=== PATIENT | male | born 1940 | race Caucasian/White ===

== ENCOUNTER 2018-06-24 10:36 | Emergency (ER) | payer MEDICARE, OTHER ==
[~2018-06-24] VITALS: Ht 188 cm; Wt 93.4 kg
--- OUTSIDE RECORDS SUMMARY | 2018-06-24 10:44 | XMS REPORT | Clinical Summary ---
Author Author Admin, [facility] Organization [facility] Address Unknown Phone Unavailable Allergies, Adverse Reactions, Alerts Allergy Name Reaction Description Start Date Severity Status Provider No Known Allergies Yadira Elder Conditions or Problems Problem Name Problem Code Onset Date Status Entry Date Provider Comment Standard Description Annotate Inguinal hernia, left 550.90 Active Tracy Lara MD Unilateral or unspecified inguinal hernia, without mention of obstruction or gangrene (not specified as recurrent) Testicular Pain Active Tracy Lara MD Abnormal urine finding 791.9 Active Chani Delacruz Other nonspecific findings on examination of urine Medication List Medication Instructions Start Date Stop Date Generic Name NDC Status Provider Patient Instruction CALCIUM 500 MG ORAL TABLET 1 tab by mouth daily CALCIUM 79543669285 Active Yadira Elder Active MULTIVITAMINS ORAL CAPSULE 1 cap by mouth daily MULTIPLE VITAMIN 85475474140 Active Yadira Elder Active ASPIRIN 81 MG ORAL TABLET DELAYED RELEASE 1 po qd ASPIRIN 91153601603 Active Yadira Elder Active PROMETHAZINE HCL 25 MG ORAL TABLET 1 four times a day as needed for nausea/ vomiting PROMETHAZINE HCL 17883141568 Active Yadira Elder Active POLYETHYLENE GLYCOL 1450 POWDER 17 gram daily prn constipation POLYETHYLENE GLYCOL 1450 74767935272 Active Yadira Elder Active Advance Directives Directive Description Start Date PERMISSION TO SHARE Vital Signs Date Name Value Unit Range Description blood pressure, diastolic 76 mm[Hg] BP kruger blood pressure, systolic 120 mm[Hg] BP sys height E&M 74 [in_us] Bdy height pulse rate E&M 77 /min Heart rate temperature E&M 98.2 [degF] Body temperature weight E&M 227 [lb_av] Weight Measured Diagnostic Results Date Name Value Unit Range Description Chart Maintenance: Outside labs entered on Flowsheet - Chemistry prostate specific antigen 1.1 ng/mL Office Visit: Difficulty with urination - Chemistry protein, total urine random negative mg/dL RBC, urine, dipstick negative Office Visit: Difficulty with urination - Urinalysis ketones, urine, by test strip negative bilirubin, urine negative glucose, urine, semiquantitative negative pH, urine, semiquantitative 5 specific gravity, urine 1.020 urine color yellow appearance, urine clear leukocyte esterase, urine, by dipstick negative nitrite, urine, semiquantitative negative urobilinogen, urine, semiquantitative (dipstick) negative protein, urine, semiquantitative (dipstick) negative Encounters Code Encounter Date Provider Facility [id number] Level 3 New 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
--- OUTSIDE RECORDS SUMMARY | 2018-06-24 10:44 | XMS REPORT | Clinical Summary ---
Author Author Admin, [facility] Organization [facility] Address Unknown Phone Unavailable Allergies, [...] TABLET 1 tab by mouth daily CALCIUM 74055552236 Active Yadira Elder Active MULTIVITAMINS ORAL CAPSULE 1 cap by mouth daily MULTIPLE VITAMIN 45468065746 Active Yadira Elder Active ASPIRIN 81 MG ORAL TABLET DELAYED RELEASE 1 po qd ASPIRIN 45099806624 Active Yadira Elder Active PROMETHAZINE HCL 25 MG ORAL TABLET 1 four times a day as needed for nausea/ vomiting PROMETHAZINE HCL 60455158611 Active Yadira Elder Active POLYETHYLENE GLYCOL 1450 POWDER 17 gram daily prn constipation POLYETHYLENE GLYCOL 1450 02418215290 Active Yadira Elder Active Advance Directives Directive [...] Results Date Name Value Unit Range Description Office Visit: Difficulty with urination - Chemistry RBC, urine, dipstick negative protein, total urine random negative mg/dL Office Visit: Difficulty with urination - Urinalysis ketones, urine, by test strip negative bilirubin, urine negative glucose, urine, semiquantitative negative pH, urine, semiquantitative 5 specific gravity, urine 1.020 urine color yellow appearance, urine clear leukocyte esterase, urine, by dipstick negative nitrite, urine, semiquantitative negative urobilinogen, urine, semiquantitative (dipstick) negative protein, urine, semiquantitative (dipstick) negative Encounters Code Encounter Date Provider Facility [id number] Level 3 New Patient 13:34:36 MONISHA Lara MD [facility]
--- OUTSIDE RECORDS SUMMARY | 2018-06-24 10:44 | XMS REPORT | Clinical Summary ---
Author Author Admin, [facility] Organization [facility] Address Unknown Phone [...] TABLET 1 tab by mouth daily CALCIUM 55502804532 Active Yadira Elder Active MULTIVITAMINS ORAL CAPSULE 1 cap by mouth daily MULTIPLE VITAMIN 20691677486 Active Yadira Elder Active ASPIRIN 81 MG ORAL TABLET DELAYED RELEASE 1 po qd ASPIRIN 64890623251 Active Yadira Elder Active PROMETHAZINE HCL 25 MG ORAL TABLET 1 four times a day as needed for nausea/ vomiting PROMETHAZINE HCL 20630319850 Active Yadira Elder Active POLYETHYLENE GLYCOL 1450 POWDER 17 gram daily prn constipation POLYETHYLENE GLYCOL 1450 06788396165 Active Yadira Elder Active Advance Directives Directive [...] negative Encounters Code Encounter Date Provider Facility CPT-[id number] Level 3 New Patient 13:34:36 MONISHA Lara MD [facility]
--- OUTSIDE RECORDS SUMMARY | 2018-06-24 10:44 | XMS REPORT | Clinical Summary ---
Author Author Admin, [facility] Organization [facility] Address Unknown Phone Unavailable Allergies, Adverse Reactions, [...] TABLET 1 tab by mouth daily CALCIUM 69086715557 Active Yadira Elder Active MULTIVITAMINS ORAL CAPSULE 1 cap by mouth daily MULTIPLE VITAMIN 76035975917 Active Yadira Elder Active ASPIRIN 81 MG ORAL TABLET DELAYED RELEASE 1 po qd ASPIRIN 04233514401 Active Yadira Elder Active PROMETHAZINE HCL 25 MG ORAL TABLET 1 four times a day as needed for nausea/ vomiting PROMETHAZINE HCL 77859449584 Active Yadira Elder Active POLYETHYLENE GLYCOL 1450 POWDER 17 gram daily prn constipation POLYETHYLENE GLYCOL 1450 16543360927 Active Yadira Elder Active Encounters Code Encounter Date Provider Facility CPT-46456 Level 3 New Patient 13:34: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
--- OUTSIDE RECORDS SUMMARY | 2018-06-24 10:44 | XMS REPORT | Clinical Summary ---
Author Author Admin, [facility] Organization [facility] Address Unknown Phone Unavailable Allergies, Adverse Reactions, Alerts Allergy Name Reaction Description Start Date Severity Status Provider No Known Allergies Yadira Elder Conditions or Problems Problem Name Problem Code Onset Date Status Entry Date Provider Comment Standard Description Annotate Problems Unknown Active Medication List Medication Instructions Start Date Stop Date Generic Name NDC Status Provider Patient Instruction CALCIUM 500 MG ORAL TABLET 1 tab by mouth daily CALCIUM 46748948288 Active Yadira Elder Active MULTIVITAMINS ORAL CAPSULE 1 cap by mouth daily MULTIPLE VITAMIN 51131445714 Active Yadira Elder Active ASPIRIN 81 MG ORAL TABLET DELAYED RELEASE 1 po qd ASPIRIN 01590521359 Active Yadira Elder Active PROMETHAZINE HCL 25 MG ORAL TABLET 1 four times a day as needed for nausea/ vomiting PROMETHAZINE HCL 47870140308 Active Yadira Elder Active POLYETHYLENE GLYCOL 1450 POWDER 17 gram daily prn constipation POLYETHYLENE GLYCOL 1450 95200294304 Active Yadira Elder Active
--- OUTSIDE RECORDS SUMMARY | 2018-06-24 10:44 | XMS REPORT | Clinical Summary ---
Author Author Admin, E Organization [facility] Address Unknown Phone Unavailable Allergies, Adverse Reactions, [...] TABLET 1 tab by mouth daily CALCIUM 78631402192 Active Yadira Elder Active MULTIVITAMINS ORAL CAPSULE 1 cap by mouth daily MULTIPLE VITAMIN 76020943911 Active Yadira Elder Active ASPIRIN 81 MG ORAL TABLET DELAYED RELEASE 1 po qd ASPIRIN 65481345406 Active Yadira Elder Active PROMETHAZINE HCL 25 MG ORAL TABLET 1 four times a day as needed for nausea/ vomiting PROMETHAZINE HCL 75186192907 Active Yadira Elder Active POLYETHYLENE GLYCOL 1450 POWDER 17 gram daily prn constipation POLYETHYLENE GLYCOL 1450 32952470686 Active Yadira Elder Active Advance Directives Directive [...] negative Encounters Code Encounter Date Provider Facility CPT-[id number] Level 3 New Patient 13:34:36 MONISHA Lara MD [facility]
--- OUTSIDE RECORDS SUMMARY | 2018-06-24 10:44 | XMS REPORT | Clinical Summary ---
Author Author Admin, [facility] Organization [facility] Address Unknown Phone Unavailable Allergies, [...] TABLET 1 tab by mouth daily CALCIUM 36549778010 Active Yadira Elder Active MULTIVITAMINS ORAL CAPSULE 1 cap by mouth daily MULTIPLE VITAMIN 42542654069 Active Yadira Elder Active ASPIRIN 81 MG ORAL TABLET DELAYED RELEASE 1 po qd ASPIRIN 25292242337 Active Yadira Elder Active PROMETHAZINE HCL 25 MG ORAL TABLET 1 four times a day as needed for nausea/ vomiting PROMETHAZINE HCL 85520389603 Active Yadira Elder Active POLYETHYLENE GLYCOL 1450 POWDER 17 gram daily prn constipation POLYETHYLENE GLYCOL 1450 64794590287 Active Yadira Elder Active Advance Directives Directive [...] negative Encounters Code Encounter Date Provider Facility CPT-12998 Level 3 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
--- OUTSIDE RECORDS SUMMARY | 2018-06-24 10:44 | XMS REPORT | Clinical Summary ---
Author Author Admin, [facility] Organization [facility] Address Unknown Phone Unavailable Allergies, [...] TABLET 1 tab by mouth daily CALCIUM 57624771775 Active Yadira Elder Active MULTIVITAMINS ORAL CAPSULE 1 cap by mouth daily MULTIPLE VITAMIN 36137597559 Active Yadira Elder Active ASPIRIN 81 MG ORAL TABLET DELAYED RELEASE 1 po qd ASPIRIN 00431381628 Active Yadira Elder Active PROMETHAZINE HCL 25 MG ORAL TABLET 1 four times a day as needed for nausea/ vomiting PROMETHAZINE HCL 86350711599 Active Yadira Elder Active POLYETHYLENE GLYCOL 1450 POWDER 17 gram daily prn constipation POLYETHYLENE GLYCOL 1450 56505749699 Active Yadira Elder Active Advance Directives Directive Description Start Date PERMISSION TO SHARE Encounters Code Encounter Date Provider Facility CPT-24013 Level 3 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
--- OUTSIDE RECORDS SUMMARY | 2018-06-24 10:45 | XMS REPORT | Clinical Summary ---
Author Author Admin, [facility] Organization [facility] Address Unknown Phone Unavailable Allergies, Adverse Reactions, [...] TABLET 1 tab by mouth daily CALCIUM 09954360192 Active Yadira Elder Active MULTIVITAMINS ORAL CAPSULE 1 cap by mouth daily MULTIPLE VITAMIN 92060948037 Active Yadira Elder Active ASPIRIN 81 MG ORAL TABLET DELAYED RELEASE 1 po qd ASPIRIN 68943147638 Active Yadira Elder Active PROMETHAZINE HCL 25 MG ORAL TABLET 1 four times a day as needed for nausea/ vomiting PROMETHAZINE HCL 57583321978 Active Yadira Elder Active POLYETHYLENE GLYCOL 1450 POWDER 17 gram daily prn constipation POLYETHYLENE GLYCOL 1450 11577542733 Active Yadira Elder Active Encounters Code Encounter Date Provider Facility CPT-03807 Level 3 New Patient 13:34:36 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
--- OUTSIDE RECORDS SUMMARY | 2018-06-24 10:45 | XMS REPORT | Continuity of Care Document ---
Author Author [facility] Address Unknown Phone Unavailable Allergies There is no data. Medications There is no data. Problems Date Dx Coded Attending Type Code Diagnosis Diagnosed By 04/28/2017 Tracy Lara MD K40.90 Inguinal hernia, left 04/28/2017 Tracy Lara MD N50.8 Testicular Pain 04/28/2017 Tracy Lara MD R82.99 Abnormal urine finding Procedures There is no data. Results There is no data. Encounters ACCT No. Visit Date/Time Discharge Status Pt. Type Provider Facility Loc./Unit Complaint [id number] 05/12/2018 19:44:01 [facility] Unknown Tracy Lara MD
[2018-06-24] MEDS ORDERED: NS IV 500 ML 500 ML IV ONE (10:48)
--- NOTE | 2018-06-24 11:33 | Diagnostic Imaging Report ---
INDICATION: Slurred speech, found down. FINDINGS: No aspiration or pneumonia. Air trapping and COPD noted. There is a right IJ catheter in the SVC. Heart size is felt to be within normal limits. No overt vascular congestion. IMPRESSION: No acute appearing abnormality. Dictated by: Dictated on workstation # [id number]
[2018-06-24 11:36] LABS: FIBRIN DEGRADATION PRODUCTS 0.96 UG/ML (0.00-0.49); INR 1.1 (0.8-1.4); PROTHROMBIN TIME PATIENT 13.9 SEC (12.2-14.7)
[2018-06-24 11:37] LABS: CARBON DIOXIDE 24 MMOL/L (21-32); CHLORIDE 98 MMOL/L (98-107); SODIUM 136 MMOL/L (135-145)
[2018-06-24 11:38] LABS: ALANINE AMINOTRANSFERASE 20 U/L (0-55); ALBUMIN 4.2 GM/DL (3.2-4.5); ALKALINE PHOSPHATASE 72 U/L (40-136); BILIRUBIN,TOTAL 0.7 MG/DL (0.1-1.0); BUN/CREATININE RATIO 26; CALCIUM 9.1 MG/DL (8.5-10.1); CREATININE SERUM 1.13 MG/DL (0.60-1.30); GFR ESTIMATED > 60; GLUCOSE 200 MG/DL (70-105); TOTAL PROTEIN 6.7 GM/DL (6.4-8.2)
[2018-06-24 11:41] LABS: BASOPHILS % (AUTO) 0 % (0-10); EOSINOPHILS % (AUTO) 0 % (0-10); HEMATOCRIT 42 % (40-54); HEMOGLOBIN 14.5 G/DL (13.3-17.7); LYMPHOCYTES % (AUTO) 4 % (12-44); MEAN CORPUSCULAR HEMOGLOBIN 33 PG (25-34); MEAN CORPUSCULAR HGB CONC 34 G/DL (32-36); MEAN CORPUSCULAR VOLUME 95 FL (80-99); MEAN PLATELET VOLUME 10.1 FL (7.4-10.4); MONOCYTES % (AUTO) 6 % (0-12); PLATELET COUNT 175 10^3/uL (130-400); RED CELL DISTRIBUTION WIDTH 14.2 % (10.0-14.5); WHITE BLOOD COUNT 15.8 10^3/uL (4.3-11.0)
[2018-06-24 11:42] LABS: LYMPHOCYTES # (AUTO) 0.7 X 10^3 (1.0-4.0); MONOCYTES # (AUTO) 0.9 X 10^3 (0.0-1.0); NEUTROPHILS # (AUTO) 14.1 X 10^3 (1.8-7.8); NEUTROPHILS % (AUTO) 90 % (42-75)
--- NOTE | 2018-06-24 11:42 | Diagnostic Imaging Report ---
PROCEDURE: CT head and CT cervical spine without contrast. TECHNIQUE: Multiple contiguous axial images were obtained through the brain and cervical spine without the use of intravenous contrast. Sagittal and coronal reformations through the cervical spine were then performed. Auto Exposure Controls were utilized during the CT exam to meet ALARA standards for radiation dose reduction. INDICATION: Strokelike symptoms and found down. Patient has slurred speech. COMPARISON: No prior studies are available for comparison. FINDINGS: CT HEAD: There is a rounded masslike density identified in the right frontotemporal lobe measuring approximately 3.7 cm AP diameter. Moderate amount of surrounding low density is consistent with edema. Ventricular size is normal. There is no midline shift. No acute intra-axial or extra-axial hemorrhage is seen although the lesion does have some slight hyperdensity to it. Cisterns are patent. Visualized paranasal sinuses are clear. IMPRESSION: 1. 3.7 cm mass right frontotemporal lobe with surrounding vasogenic edema. This is concerning for a neoplastic process, either primary or metastatic. MRI would be useful for further evaluation. CT CERVICAL SPINE: Multilevel degenerative disc disease is seen within disc space narrowing and marginal spurring. No fracture is seen. Prevertebral tissues are within normal limits. Odontoid is intact. IMPRESSION: Cervical spondylosis. No acute bony abnormality is detected. Results were discussed with Dr. Phillips of the emergency department prior to this dictation. Dictated by: Dictated on workstation # [id number]
[2018-06-24] MEDS ORDERED: DEXAMETHASONE 10 MG/ML (DECADRON) 1 ML VIAL IV ONE (11:45)
--- NOTE | 2018-06-24 11:45 | ED Neurological Problem ---
General Chief Complaint: Altered Mental Status Stated Complaint: SLURRED SPEECH; FATIGUE; BP 130/70 Nursing Triage Note: Patient's states she found patient on the floor in the bathroom, states patient had been incontinent of bowel and bladder, slurred speech, and lethargic mentation. Nursing Sepsis Screen: No Definite Risk Source: patient Exam Limitations: no limitations History of Present Illness Date Seen by Provider: Jun 24, 2018 Time Seen by Provider: 10:40 Initial Comments Here with family who brought him to the emergency department via POV. He apparently was found in the bathroom on the floor with loss of bowel and bladder. He was confused. Last and well time was last night before he went to bed. Confusion continues now and appears to be globally weak. No report of vomiting. Does have contusion to the right side of the face on the cheek and forehead. Patient does not remember anything of what happened. He is able to follow simple commands and answer simple questions. Does have history of lymphoma that is reported to be in remission. Last chemotherapy was in March. Follows with oncology and cardiology at [facility] in [facility]. Timing/Duration: unknown, increasing Severity: moderate, severe Associated Symptoms: confusion, slurred speech, weakness Allergies and Home Medications Allergies Coded Allergies: No Known Drug Allergies (Unverified , 06/24/18) Patient Home Medication List Home Medication List Reviewed: Yes Review of Systems Review of Systems Constitutional: No chills, No fever; weakness Eyes: No Symptoms Reported Ears, Nose, Mouth, Throat: mouth pain (Tongue); denies loose teeth Respiratory: No cough, No short of breath Cardiovascular: No chest pain; syncope Gastrointestinal: No abdominal pain, No nausea, No vomiting Genitourinary: no symptoms reported Musculoskeletal: no symptoms reported Skin: see HPI, change in color, lesions Psychiatric/Neurological: See HPI, Cognitive Dysfunction, Weakness All Other Systems Reviewed Negative Unless Noted: Yes Past Vycyfnm-Wzcrhs-Syqsdq Hx Past Med/Social Hx: Reviewed Nursing Past Med/Soc Hx Patient Social History Alcohol Use: Denies Use Recreational Drug Use: No Smoking Status: Never a Smoker 2nd Hand Smoke Exposure: No Recent Foreign Travel: No Contact w/Someone Who Travel: No Recent Infectious Disease Expo: No Physical Abuse: No Sexual Abuse: No Mistreated: No Past Medical History Surgeries: Yes Bladder Surgery, Tonsillectomy, Transurethral Resection Respiratory: Yes Pulmonary Embolism, COPD Cardiac: Yes Neurological: No Genitourinary: No Gastrointestinal: Yes Gastroesophageal Reflux Cancer: Yes Lymphoma What Type of Treatment Did You: Chemotherapy, Radiation Psychosocial: No Blood Disorders: Yes (blood clotting disorder) Family Medical History Reviewed and Corrections made No Pertinent Family Hx Physical Exam Vital Signs Vital Signs - First Documented 06/24/18 10:41 Temp 98.1 Pulse 86 Resp 20 B/P (MAP) 128/61 (83) Pulse Ox 95 O2 Delivery Room Air Capillary Refill : Less Than 3 Seconds Height, Weight, BMI Height: 6'2.00" Weight: 206lbs. oz. 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 Does note date and birthday. Does know place and self but is somewhat confused on time) Crainal Nerves: PERRL, abnormal speech (slurred or thick tongued); No facial asymmetry, No facial weakness, No tongue deviation to R, No tongue deviation to L Coordination/Gait: abnormal gait (globally weak) Motor/Sensory: no sensory deficit, weak motor strength RUE, weak motor strength LUE, weak motor strength RLE, weak motor strength LLE Skin: normal color, warm/dry Focused Exam Lactate Level 06/24/18 10:45: Lactic Acid Level 2.27*H 06/24/18 12:45: Lactic Acid Level 2.29*H Lactic Acid Level Laboratory Tests Test 06/24/18 10:45 06/24/18 12:45 Lactic Acid Level 2.27 MMOL/L (0.50-2.00) *H 2.29 MMOL/L (0.50-2.00) *H Progress/Results/Core Measures Results/Orders Lab Results Laboratory Tests Test 06/24/18 10:45 06/24/18 10:48 06/24/18 12:00 06/24/18 12:45 Range/Units White Blood Count 15.8 H 4.3-11.0 10^3/uL Red Blood Count 4.45 4.35-5.85 10^6/uL Hemoglobin 14.5 13.3-17.7 G/DL Hematocrit 42 40-54 % Mean Corpuscular Volume 95 80-99 FL Mean Corpuscular Hemoglobin 33 25-34 PG Mean Corpuscular Hemoglobin Concent 34 32-36 G/DL Red Cell Distribution Width 14.2 10.0-14.5 % Platelet Count 175 130-400 10^3/uL Mean Platelet Volume 10.1 7.4-10.4 FL Neutrophils (%) (Auto) 90 H 42-75 % Lymphocytes (%) (Auto) 4 L 12-44 % Monocytes (%) (Auto) 6 0-12 % Eosinophils (%) (Auto) 0 0-10 % Basophils (%) (Auto) 0 0-10 % Neutrophils # (Auto) 14.1 H 1.8-7.8 X 10^3 Lymphocytes # (Auto) 0.7 L 1.0-4.0 X 10^3 Monocytes # (Auto) 0.9 0.0-1.0 X 10^3 Eosinophils # (Auto) 0.0 0.0-0.3 10^3/uL Basophils # (Auto) 0.0 0.0-0.1 10^3/uL Neutrophils % (Manual) 53 % Lymphocytes % (Manual) 6 % Monocytes % (Manual) 6 % Eosinophils % (Manual) 0 % Basophils % (Manual) 0 % Band Neutrophils 35 % Prothrombin Time 13.9 12.2-14.7 SEC INR Comment 1.1 0.8-1.4 Activated Partial Thromboplast Time 33 24-35 SEC D-Dimer 0.96 H 0.00-0.49 UG/ML Sodium Level 136 135-145 MMOL/L Potassium Level 4.0 3.6-5.0 MMOL/L Chloride Level 98 98-107 MMOL/L Carbon Dioxide Level 24 21-32 MMOL/L Anion Gap 14 5-14 MMOL/L Blood Urea Nitrogen 29 H 7-18 MG/DL Creatinine 1.13 0.60-1.30 MG/DL Estimat Glomerular Filtration Rate > 60 BUN/Creatinine Ratio 26 Glucose Level 200 H 70-105 MG/DL Lactic Acid Level 2.27 *H 2.29 *H 0.50-2.00 MMOL/L Calcium Level 9.1 8.5-10.1 MG/DL Corrected Calcium 8.9 8.5-10.1 MG/DL Total Bilirubin 0.7 0.1-1.0 MG/DL Aspartate Amino Transf (AST/SGOT) 41 H 5-34 U/L Alanine Aminotransferase (ALT/SGPT) 20 0-55 U/L Alkaline Phosphatase 72 40-136 U/L Troponin T 159 *H <=15 NG/L Total Protein 6.7 6.4-8.2 GM/DL Albumin 4.2 3.2-4.5 GM/DL Glucometer 186 H 70-110 MG/DL Urine Color YELLOW Urine Clarity SL CLOUDY Urine pH 5.5 5-9 Urine Specific [place] 1.025 H 1.016-1.022 Urine Protein NEGATIVE NEGATIVE Urine Glucose (UA) NEGATIVE NEGATIVE Urine Ketones TRACE H NEGATIVE Urine Nitrite NEGATIVE NEGATIVE Urine Bilirubin NEGATIVE NEGATIVE Urine Urobilinogen 0.2 NORMAL MG/DL Urine Leukocyte Esterase NEGATIVE NEGATIVE Urine RBC (Auto) TRACE-I NEGATIVE Urine RBC 0-2 /HPF Urine WBC 5-10 H /HPF Urine Squamous Epithelial Cells 0-2 /HPF Urine Crystals NONE /LPF Urine Amorphous Sediment LARGE JIA URATES H /LPF Urine Bacteria FEW H /HPF Urine Casts NONE /LPF Urine Mucus MODERATE H /LPF Urine Culture Indicated NO My Orders Orders - CONNIE ELIZALDE MD Cbc With Automated Diff (06/24/18 10:48) Protime With Inr (06/24/18 10:48) Partial Thromboplastin Time (06/24/18 10:48) Comprehensive Metabolic Panel (06/24/18 10:48) Fibrin Degradation Products (06/24/18 10:48) Chest 1 View Ap/Pa Only (06/24/18 10:48) Ekg Tracing (06/24/18 10:48) Accucheck Stat ONCE (06/24/18 10:48) Saline Lock/Iv-Start (06/24/18 10:48) Vital Signs Stroke Patient Q15M (06/24/18 10:48) O2 (06/24/18 10:48) Intake & Output 06,14,22 (06/24/18 10:48) Monitor-Rhythm Ecg Trace Only (06/24/18 10:48) Dysphagia Screening Tool (06/24/18 10:48) Blood Culture (06/24/18 10:48) Sputum Culture (06/24/18 10:48) Urinalysis (06/24/18 10:48) Urine Culture (06/24/18 10:48) Vital Signs Adult Sepsis Patie Q15M (06/24/18 10:48) Remove Rings In Anticipation O (06/24/18 10:48) Lactic Acid Analyzer (06/24/18 10:48) Ns Iv 500 Ml (Sodium Chloride 0.9%) (06/24/18 10:48) Troponin T (06/24/18 10:59) Ct Head/Cervical Spine Wo (06/24/18 10:43) Manual Differential (06/24/18 10:45) Dexamethasone Injection (Decadron Inject (06/24/18 11:45) Medications Given in ED Current Medications Medications Dose Ordered Sig/Mary Route Start Time Stop Time Status Last Admin Dose Admin Dexamethasone Sodium Phosphate 10 mg ONCE ONCE IV 06/24/18 11:45 06/24/18 11:47 DC 06/24/18 12:24 10 MG Sodium Chloride 500 ml @ 0 mls/hr Q0M ONCE IV 06/24/18 10:48 06/24/18 10:52 DC 06/24/18 10:58 1,000 MLS/HR Vital Signs/I&O 06/24/18 06/24/18 10:41 12:59 Temp 98.1 98.4 Pulse 86 74 Resp 20 14 B/P (MAP) 128/61 (83) 112/56 (74) Pulse Ox 95 95 O2 Delivery Room Air Room Air Blood Pressure Mean: 83 FSBG Bedside Testing Finger Stick Blood Glucose: 186 Blood Glucose Action Taken: notified Dr Elizalde Progress Progress Note : Progress Note Seen and evaluated on arrival. IV established. Stroke and sepsis protocol initiated. Rapid CT of head and neck assessment ordered. EKG and labs ordered. We will get blood cultures and lactic acid. Monitor patient. 1142: Notified by radiology of mass in the brain. Patient will require transfer. Patient's oncologist, lead infrastructure architect and typical carious [facility] in [facility]. We will try to arrange transfer there. Decadron 10 mg IV ordered due to edema effect of mass and brain. Current vital signs heart rate of 80, blood pressure of 133/66 and O2 sat 96% on room air. 1205: I have initiated transfer discussion with a [facility]. I discussed the case with the emergency doctor but will talk with the trauma surgeon. Ultimately patient clearly needs admission in the hospitalist service. 1221: I did discuss the case with Rosalba, nurse practitioner on the hospitalist service. Case reviewed. Patient has been accepted to the service of Dr. Villanueva at [facility]. We will arrange transfer via EMS. A copy of the chart, labs, radiology reports intolerance we'll go with the patient. Initial ECG Impression Date: Jun 24, 2018 Initial ECG Impression Time: 10:41 Initial ECG Rate: 86 Initial ECG Rhythm: Normal Sinus Comment Sinus rhythm with incomplete right bundle branch block. Normal but leftward axis. No evidence of ST elevation OK. No previous available for comparison. Interpreted by me. Diagnostic Imaging Diagonstic Imaging: CT Plain Films/CT/US/NM/MRI: c-spine, head Comments [facility], [place] NAME: PRINCE GEIGER [facility] REC#: [id number] PT STATUS: REG ER : 1940 PHYSICIAN: CONNIE ELIZALDE MD ADMIT DATE: 06/24/18/ER FS Draft Date of Exam:06/24/18 CT HEAD/CERVICAL SPINE WO PROCEDURE: CT head and CT cervical spine without contrast. TECHNIQUE: Multiple contiguous axial images were obtained through the brain and cervical spine without the use of intravenous contrast. Sagittal and coronal reformations through the cervical spine were then performed. Auto Exposure Controls were utilized during the CT exam to meet ALARA standards for radiation dose reduction. INDICATION: Strokelike symptoms and found down. Patient has slurred speech. COMPARISON: No prior studies are available for comparison. FINDINGS: CT HEAD: There is a rounded masslike density identified in the right frontotemporal lobe measuring approximately 3.7 cm AP diameter. Moderate amount of surrounding low density is consistent with edema. Ventricular size is normal. There is no midline shift. No acute intra-axial or extra-axial hemorrhage is seen although the lesion does have some slight hyperdensity to it. Cisterns are patent. Visualized paranasal sinuses are clear. IMPRESSION: 1. 3.7 cm mass right frontotemporal lobe with surrounding vasogenic edema. This is concerning for a neoplastic process, either primary or metastatic. MRI would be useful for further evaluation. CT CERVICAL SPINE: Multilevel degenerative disc disease is seen within disc space narrowing and marginal spurring. No fracture is seen. Prevertebral tissues are within normal limits. Odontoid is intact. IMPRESSION: Cervical spondylosis. No acute bony abnormality is detected. Results were discussed with Dr. Elizalde of the emergency department prior to this dictation. Dictated on workstation # [id number] Dict: 06/24/18 1128 Trans: 06/24/18 1141 TS [id number] Interpreted by: WILLIS HERRON MD Electronically signed by: Diagonstic Imaging: Xray Plain Films/CT/US/NM/MRI: chest Comments [facility] [place] NAME: PRINCE GEIGER [facility] REC#: [id number] PT STATUS: REG ER : 1940 PHYSICIAN: CONNIE ELIZALDE MD ADMIT DATE: 06/24/18/ER FS Draft Date of Exam:06/24/18 CHEST 1 VIEW AP/PA ONLY INDICATION: Slurred speech, found down. FINDINGS: No aspiration or pneumonia. Air trapping and COPD noted. There is a right IJ catheter in the SVC. Heart size is felt to be within normal limits. No overt vascular congestion. IMPRESSION: No acute appearing abnormality. Dictated on workstation # [id number] Dict: 06/24/18 1131 Trans: 06/24/18 113 B [id number] Interpreted by: SHAYY ROQUE Electronically signed by: Departure Impression Primary Impression: Brain mass Additional Impressions: Seizure Facial contusion Qualified Codes: S00.83XA - Contusion of other part of head, initial encounter Elevated troponin Disposition: 02 XFER SHT-TRM HOSP Condition: Stable Transfer Time Spoke to Accepting Phy: 12:21 Transfer Time: 13:00 Transfer Facility: [facility] in [facility], Dr. Villanueva accepting Method of Transfer: EMS Departure-Patient Inst. Referrals: SELF,ESTHELA NARANJO (PCP/Family) Primary Care Physician CONNIE ELIZALDE MD Jun 24, 2018 11:45
[2018-06-24 11:48] LABS: BAND NEUTROPHILS 35 %; BASOPHILS % (MANUAL) 0 %; EOSINOPHILS % (MANUAL) 0 %; LYMPHOCYTES % (MANUAL) 6 %; MONOCYTES % (MANUAL) 6 %; NEUTROPHILS % (MANUAL) 53 %
[2018-06-24 12:22] LABS: CLARITY,URINE SL CLOUDY; COLOR,URINE YELLOW; GLUCOSE, URINE (UA) NEGATIVE (NEGATIVE); KETONES,URINE TRACE (NEGATIVE); NITRITE,URINE NEGATIVE (NEGATIVE); PH,URINE 5.5 (5-9); PROTEIN,URINE NEGATIVE (NEGATIVE)
[2018-06-24 12:23] LABS: BACTERIA,URINE FEW /HPF; BILIRUBIN,URINE NEGATIVE (NEGATIVE); LEUKOCYTE ESTERASE ,URINE NEGATIVE (NEGATIVE); RBC,URINE 0-2 /HPF; SQUAMOUS EPITHELIAL CELL,UR 0-2 /HPF; UROBILINOGEN,URINE 0.2 MG/DL (NORMAL)
[2018-06-24 12:24] LABS: AMORPHOUS SEDIMENT,UR LARGE AMOR URATES /LPF
[2018-06-24 12:59] VITALS: BP 112/56
--- NOTE | 2018-06-27 13:34 | NUR ---
Omar arzola in [facility] - 06/27/18 at 1334 by [facility] TRANSFER FORM FAXED TO [facility]
== END 2018-06-24 13:24 | disposition short-term general hospital (02) ==
LOC: ER FS 10:40
DX: S00.83XA Contusion of other part of head, initial encounter (principal); G93.89 Other specified disorders of brain; R56.9 Unspecified convulsions; R79.89 Other specified abnormal findings of blood chemistry; J44.9 Chronic obstructive pulmonary disease, unspecified; K21.9 Gastro-esophageal reflux disease without esophagitis; Z85.72 Personal history of non-Hodgkin lymphomas; Z92.21 Personal history of antineoplastic chemotherapy; Z90.89 Acquired absence of other organs; Z90.79 Acquired absence of other genital organ(s); Z86.711 Personal history of pulmonary embolism
CPT/HCPCS: 36415; 70450; 71045; 72125; 80053; 81000; 82962; 83605; 84484; 85007; 85027; 85379; 85610; 85730; 87040; 87077; 87088; 87186; 93005; 93041; 96361; 96374

== ENCOUNTER → 2018-07-06 | Outpatient (CLI) | payer MEDICARE ==
[2018-07-06 16:27] LABS: EOSINOPHILS % (AUTO) 1 % (0-10); HEMATOCRIT 35 % (40-54); HEMOGLOBIN 11.9 G/DL (13.3-17.7); LYMPHOCYTES % (AUTO) 11 % (12-44); MEAN CORPUSCULAR HEMOGLOBIN 33 PG (25-34); MEAN CORPUSCULAR HGB CONC 34 G/DL (32-36); MEAN CORPUSCULAR VOLUME 98 FL (80-99); MEAN PLATELET VOLUME 11.2 FL (7.4-10.4); MONOCYTES % (AUTO) 8 % (0-12); PLATELET COUNT 91 10^3/uL (130-400); RED CELL DISTRIBUTION WIDTH 14.7 % (10.0-14.5); WHITE BLOOD COUNT 8.7 10^3/uL (4.3-11.0)
[2018-07-06 16:28] LABS: BASOPHILS % (AUTO) 0 % (0-10); EOSINOPHILS # (AUTO) 0.1 10^3/uL (0.0-0.3); MONOCYTES # (AUTO) 0.7 X 10^3 (0.0-1.0); NEUTROPHILS % (AUTO) 80 % (42-75)
[2018-07-06 16:56] LABS: POTASSIUM 4.5 MMOL/L (3.6-5.0)
[2018-07-06 16:57] LABS: CREATININE SERUM 1.26 MG/DL (0.60-1.30)
== END ==
LOC: LAB FS 16:08
DX: C71.9 Malignant neoplasm of brain, unspecified (principal)
CPT/HCPCS: 36415; 80048; 85025

== ENCOUNTER → 2018-10-19 | Outpatient (CLI) | payer MEDICARE ==
[2018-10-19 15:56] LABS: HEMATOCRIT 28 % (40-54); HEMOGLOBIN 9.5 G/DL (13.3-17.7); MEAN CORPUSCULAR HEMOGLOBIN 34 PG (25-34); MEAN CORPUSCULAR VOLUME 103 FL (80-99); WHITE BLOOD COUNT 4.6 10^3/uL (4.3-11.0)
[2018-10-19 15:57] LABS: BASOPHILS % (AUTO) 0 % (0-10); EOSINOPHILS % (AUTO) 1 % (0-10); LYMPHOCYTES % (AUTO) 29 % (12-44); MEAN CORPUSCULAR HGB CONC 34 G/DL (32-36); MEAN PLATELET VOLUME 10.5 FL (7.4-10.4); MONOCYTES % (AUTO) 11 % (0-12); NEUTROPHILS % (AUTO) 59 % (42-75); PLATELET COUNT 214 10^3/uL (130-400); RED CELL DISTRIBUTION WIDTH 16.9 % (10.0-14.5)
[2018-10-19 15:58] LABS: EOSINOPHILS # (AUTO) 0.1 10^3/uL (0.0-0.3); LYMPHOCYTES # (AUTO) 1.3 X 10^3 (1.0-4.0); MONOCYTES # (AUTO) 0.5 X 10^3 (0.0-1.0); NEUTROPHILS # (AUTO) 2.7 X 10^3 (1.8-7.8)
== END ==
LOC: LAB FS 12:42
PROVIDERS: ATTEND Internal Medicine Medical Oncology
DX: C83.39 Diffuse large B-cell lymphoma, extranodal and solid organ sites (principal); I82.403 Acute embolism and thrombosis of unspecified deep veins of lower extremity, bilateral
CPT/HCPCS: 36415; 85025

== ENCOUNTER → 2018-10-29 | Outpatient (CLI) | payer MEDICARE ==
[2018-10-29 13:27] LABS: ALBUMIN 3.8 GM/DL (3.2-4.5); CALCIUM 9.3 MG/DL (8.5-10.1); CREATININE SERUM 1.78 MG/DL (0.60-1.30); PHOSPHORUS 3.7 MG/DL (2.3-4.7); POTASSIUM 4.2 MMOL/L (3.6-5.0)
== END ==
LOC: LABNPT 11:25
PROVIDERS: ATTEND Internal Medicine Nephrology
DX: N17.9 Acute kidney failure, unspecified (principal)
CPT/HCPCS: 80069; 82570; 84156